=== PATIENT | male | born 2000 | race African-American/Black ===

== ENCOUNTER 2020-05-13 23:47 | Emergency (ER) | payer OTHER ==
[~2020-05-13] VITALS: Ht 177.8 cm; Wt 86.5 kg
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
[2020-05-14 00:25] VITALS: BP 151/74
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
[2020-05-14] MEDS ORDERED: IBUP-1007 PO (01:54)
[2020-05-14] MEDS ORDERED: METH-38 PO (01:54)
== END 2020-05-14 02:15 | disposition home or self-care (01) ==
LOC: ER 23:47
DX: S16.1XXA Strain of muscle, fascia and tendon at neck level, initial encounter (principal); S39.012A Strain of muscle, fascia and tendon of lower back, initial encounter; S40.012A Contusion of left shoulder, initial encounter; F17.200 Nicotine dependence, unspecified, uncomplicated; V47.6XXA Car passenger injured in collision with fixed or stationary object in traffic accident, initial encounter; Y92.488 Other paved roadways as the place of occurrence of the external cause; Y93.89 Activity, other specified; Y99.8 Other external cause status
CPT/HCPCS: 72100; 72125; 73030; 99284